=== PATIENT | female | born 1965 | race Two or more races ===

== ENCOUNTER 2016-06-08 18:49 | Emergency (ER) | payer MEDICAID ==
[2016-06-08] MEDS ORDERED: OXYCODONE HCL 5 MG TABLET ONE (19:12)
[2016-06-08] MEDS ORDERED: ACETAMINOPHEN 500 MG TABLET ONE (19:12)
--- NOTE | 2016-06-08 19:42 | RAD ---
Name: SARAHY ABDULLAHI Exam: Right ankle Comparison: None Clinical history: Trip and fall. Right ankle pain. Initial encounter. Findings: 4 radiographs of the right ankle are submitted. Bone density is normal. Ankle mortise is intact. There is soft tissue prominence diffusely at the ankle which may be body habitus. There is no fracture, dislocation, periosteal reaction or foreign body. Minimal calcaneal spurring is identified. Impression: No acute bony abnormality
== END 2016-06-08 19:54 | disposition home or self-care (01) ==
LOC: ED 18:49
DX: S93.401A Sprain of unspecified ligament of right ankle, initial encounter (principal); I10 Essential (primary) hypertension; X50.0XXA Overexertion from strenuous movement or load, initial encounter; Y93.01 Activity, walking, marching and hiking; Y92.9 Unspecified place or not applicable
CPT/HCPCS: 73610; 99283 ×2; A9270